=== PATIENT | male | born 1990 | race African-American/Black ===

== ENCOUNTER 2021-01-11 23:08 | Emergency (ER) ==
[2021-01-11] MEDS ORDERED: Lidocaine 1% (PF) 30 ML VIAL ONE (23:34)
[2021-01-11] MEDS ORDERED: Bupivacaine PF 0.5% 30 ML VIAL ONE (23:34)
== END 2021-01-11 23:53 | disposition home or self-care (01) ==
LOC: CSHERS 23:08
DX: K08.89 Other specified disorders of teeth and supporting structures (principal); F17.210 Nicotine dependence, cigarettes, uncomplicated
CPT/HCPCS: 64400; J2001; S0020

== ENCOUNTER 2022-11-21 19:45 | Emergency (ER) | payer SELFPAY | END 2022-11-21 23:28 | disposition left against medical advice (07) | LOC: CSHERS 19:45 | DX: Z53.21 Procedure and treatment not carried out due to patient leaving prior to being seen by health care provider (principal) ==

== ENCOUNTER 2023-01-30 20:39 | Emergency (ER) | payer SELFPAY ==
[2023-01-30] MEDS ORDERED: Ketorolac Tromethamine 30 MG/ML VIAL ONE (22:57)
== END 2023-01-30 23:10 | disposition home or self-care (01) ==
LOC: CSHERS 20:39
DX: K04.7 Periapical abscess without sinus (principal); K02.9 Dental caries, unspecified; F17.290 Nicotine dependence, other tobacco product, uncomplicated
CPT/HCPCS: 96372; 99282; J1885

== ENCOUNTER 2023-08-22 20:42 | Emergency (ER) | payer SELFPAY ==
[2023-08-22] MEDS ORDERED: Prochlorperazine 10 MG/2 ML VIAL ONE (21:26)
[2023-08-22] MEDS ORDERED: Ketorolac Tromethamine 30 MG/ML VIAL ONE (21:26)
== END 2023-08-22 22:41 | disposition home or self-care (01) ==
LOC: CSHERS 20:42
DX: R51.9 Headache, unspecified (principal); I10 Essential (primary) hypertension
CPT/HCPCS: 96372; 99283; J0780; J1885

== ENCOUNTER 2025-09-29 06:06 | Emergency (ER) | payer SELFPAY ==
[2025-09-29] MEDS ORDERED: Ketorolac Tromethamine 30 MG (1 mL) VIAL ONE (06:24)
[2025-09-29] MEDS ORDERED: Amoxicillin/Potassium Clav 875 MG TAB ONE (06:24)
== END 2025-09-29 06:23 | disposition home or self-care (01) ==
LOC: CSHERS 06:06
DX: K04.7 Periapical abscess without sinus (principal); F17.290 Nicotine dependence, other tobacco product, uncomplicated
CPT/HCPCS: 96372; 99282; J1885